=== PATIENT | female | born 1955 | race Caucasian/White ===

== ENCOUNTER 2022-12-25 09:14 | Outpatient (CLI) | payer MEDICARE | END 2022-12-25 09:15 | disposition home or self-care (01) | LOC: CSHMAMMO 09:14 | PROVIDERS: ATTEND Family Medicine | DX: Z12.31 Encounter for screening mammogram for malignant neoplasm of breast (principal) | CPT/HCPCS: 77063; 77067 ==

== ENCOUNTER 2023-04-11 10:19 | Outpatient (CLI) | payer MEDICARE | END 2023-04-11 10:20 | disposition home or self-care (01) | LOC: CSHMRI 10:19 | PROVIDERS: ATTEND Nurse Practitioner Family | DX: M47.24 Other spondylosis with radiculopathy, thoracic region (principal) | CPT/HCPCS: 72146 ==